=== PATIENT | female | born 1990 | race Caucasian/White ===

== ENCOUNTER → 2020-11-02 14:59 | Observation (INO) ==
[2020-11-02 14:24] LABS: Basophils % 0.2 %; Eosinophils % 0.4 %; Hematocrit 36.1 % (35.3-44.9); Immature Granulocytes % 0.6 % (0-4); Lymphocytes # 1.5 K/mcL (0.6-4.6); Mean Corpuscular HGB Conc 33.2 g/dL (31.6-35.5); Mean Corpuscular Hemoglobin 29.1 pg (28.0-33.3); Mean Corpuscular Volume 87.4 fL (83.0-100.0); Mean Platelet Volume 12.5 fL (9.4-12.4); Monocytes # 0.7 K/mcL (0.0-1.3); Monocytes % 7.7 %; Neutrophils # 6.8 K/mcL (1.6-8.9); Platelet Count 243 K/mcL (140-400); Red Blood Count 4.13 M/mcL (3.82-4.97); Red Cell Distribution Width 13.8 % (11.5-14.5); Segmented Neutrophils % 75.1 %; White Blood Count 9.1 K/mcL (4.3-11.1)
[2020-11-02 14:39] LABS: Protein/Creatinine Ratio,Urine 0.27 mg/mg (0.00-0.20)
[2020-11-02 14:40] LABS: Alanine Aminotransferase 12 Units/L (7-52); Aspartate Amino Transferase 17 Units/L (13-39); BUN/Creatinine Ratio 8 (6-26); Blood Urea Nitrogen 6 mg/dL (6-20); Lactate Dehydrogenase 149 Units/L (140-271); eGFR For African Americans > 60 (> 60); eGFR For Non-African Americans > 60 (> 60)
== END | disposition home or self-care (01) ==
LOC: 1NENULAB
PROVIDERS: ADMIT Advanced Practice Midwife; ATTEND Advanced Practice Midwife

== ENCOUNTER → 2020-11-16 17:50 | Observation (INO) ==
[2020-11-16 13:57] LABS: Protein/Creatinine Ratio,Urine 0.14 mg/mg (0.00-0.20)
[2020-11-16 14:06] LABS: Alanine Aminotransferase 10 Units/L (7-52); Aspartate Amino Transferase 17 Units/L (13-39); BUN/Creatinine Ratio 8 (6-26); Blood Urea Nitrogen 6 mg/dL (6-20); Lactate Dehydrogenase 141 Units/L (140-271); Uric Acid 4.8 mg/dL (2.3-7.6); eGFR For African Americans > 60 (> 60); eGFR For Non-African Americans > 60 (> 60)
[2020-11-16 15:15] LABS: Basophils % 0.2 %; Eosinophils % 0.1 %; Hematocrit 39.8 % (35.3-44.9); Immature Granulocytes % 0.4 % (0-4); Lymphocytes # 1.3 K/mcL (0.6-4.6); Lymphocytes % 14.5 %; Mean Corpuscular HGB Conc 32.7 g/dL (31.6-35.5); Mean Corpuscular Hemoglobin 28.1 pg (28.0-33.3); Mean Corpuscular Volume 86.1 fL (83.0-100.0); Monocytes # 0.8 K/mcL (0.0-1.3); Monocytes % 8.3 %; Neutrophils # 7.1 K/mcL (1.6-8.9); Platelet Count 214 K/mcL (140-400); Red Blood Count 4.62 M/mcL (3.82-4.97); Red Cell Distribution Width 13.9 % (11.5-14.5); Segmented Neutrophils % 76.5 %; White Blood Count 9.3 K/mcL (4.3-11.1)
[~2020-11-16 17:50] MED LIST: Acetaminophen 325 MG TABLET PO PRN
== END | disposition home health service (06) ==
LOC: 1NENULAB
PROVIDERS: ADMIT Registered Nurse; ATTEND Registered Nurse

== ENCOUNTER 2020-11-24 05:39 | Inpatient (IN) ==
[2020-11-24] MEDS ORDERED: Lidocaine 1% 20 ML MDV INFILT PRN (05:44)
[2020-11-24] MEDS ORDERED: Naloxone 0.4 MG/ML INJ IVP PRN (05:44)
[2020-11-24] MEDS ORDERED: Metoclopramide 10 MG/2 ML VIAL IVP PRN (05:44)
[2020-11-24] MEDS ORDERED: *HR* Nalbuphine 10 MG/ML AMPUL IV PRN (05:44)
[2020-11-24] MEDS ORDERED: Famotidine 20 MG/2 ML VIAL IVP PRN (05:44)
[2020-11-24] MEDS ORDERED: Ondansetron 4 MG/2 ML VIAL IVP PRN (05:44)
[2020-11-24 06:45] LABS: Basophils % 0.2 %; Eosinophils % 0.2 %; Hematocrit 37.7 % (35.3-44.9); Hemoglobin 12.4 g/dL (11.5-15.4); Immature Granulocytes % 0.4 % (0-4); Lymphocytes # 1.6 K/mcL (0.6-4.6); Lymphocytes % 17.5 %; Mean Corpuscular HGB Conc 32.9 g/dL (31.6-35.5); Mean Corpuscular Volume 85.1 fL (83.0-100.0); Monocytes # 0.7 K/mcL (0.0-1.3); Monocytes % 7.1 %; Neutrophils # 6.9 K/mcL (1.6-8.9); Platelet Count 217 K/mcL (140-400); Red Blood Count 4.43 M/mcL (3.82-4.97); Red Cell Distribution Width 13.9 % (11.5-14.5); Segmented Neutrophils % 74.6 %; White Blood Count 9.3 K/mcL (4.3-11.1)
[2020-11-24] MEDS ORDERED: EPHEDrine 50 MG/ML VIAL IVP PRN (06:54)
[2020-11-24 07:04] LABS: Alanine Aminotransferase 11 Units/L (7-52); Aspartate Amino Transferase 38 Units/L (13-39); BUN/Creatinine Ratio 7 (6-26); Blood Urea Nitrogen 5 mg/dL (6-20); Lactate Dehydrogenase 323 Units/L (140-271); Uric Acid 5.2 mg/dL (2.3-7.6); eGFR For African Americans > 60 (> 60); eGFR For Non-African Americans > 60 (> 60)
[2020-11-24 07:26] LABS: Protein/Creatinine Ratio,Urine 0.16 mg/mg (0.00-0.20)
[2020-11-24 10:54] LABS: Amphetamine Screen,Urine Negative ng/mL (Cutoff=1000); Barbiturate Screen,Urine Negative ng/mL (Cutoff=200); Benzodiazepines Screen,Urine Negative ng/mL (Cutoff=200); Cannabinoid Screen,Urine Negative ng/mL (Cutoff = 50); Cocaine Screen,Urine Negative ng/mL (Cutoff= 300); Opiate Screen,Urine Negative ng/mL (Cutoff=300); Phencyclidine Screen,Urine Negative ng/mL (Cutoff=25)
[2020-11-24] MEDS ORDERED: Oxytocin 20 units/ LR 1000 mL 20 UNIT/1,000 ML BAG IVC SCH (11:30)
[2020-11-24] MEDS: Ringers Solution, Lactated 1,000 ML IVC SCH ×2 (11:43→14:18)
[2020-11-24 13:47] LABS: Adenovirus Not Detected (Not Detect); Bordetella Pertussis Not Detected (Not Detect); Chlamydophila pneumoniae Not Detected (Not Detect); Coronavirus 229E Not Detected (Not Detect); Coronavirus HKU1 Not Detected (Not Detect); Coronavirus NL63 Not Detected (Not Detect); Coronavirus OC43 Not Detected (Not Detect); Human Metapneumovirus Not Detected (Not Detect); Human Rhinovirus/Enterovirus Not Detected (Not Detect); Influenza A Subtype 2009 H1 Not Detected (Not Detect); Influenza B Not Detected (Not Detect); Mycoplasma pneumoniae Not Detected (Not Detect); Parainfluenza Virus 1 Not Detected (Not Detect); Parainfluenza Virus 2 Not Detected (Not Detect); Parainfluenza Virus 3 Not Detected (Not Detect); Parainfluenza Virus 4 Not Detected (Not Detect); Respiratory Syncytial Virus Not Detected (Not Detect); SARS-CoV-2 Not Detected (Not Detect)
[2020-11-24] MEDS: Epidural Premix (fent/bupiv) 110 ML EP SCH (14:34)
[2020-11-24] MEDS ORDERED: Ropivacaine/PF 0.2% 20 ML VIAL ONE (16:04)
[2020-11-24] MEDS ORDERED: *HR* FentaNYL (PF) 100 MCG/2 ML VIAL ONE (21:47)
[2020-11-25] MEDS ORDERED: Ropivacaine/PF 0.2% 20 ML VIAL ONE (00:30)
[2020-11-25] MEDS ORDERED: *HR* FentaNYL (PF) 100 MCG/2 ML VIAL ONE (00:31)
[2020-11-25] MEDS: Epidural Premix (fent/bupiv) 110 ML EP SCH (02:22)
[2020-11-25] MEDS ORDERED: Lanolin 7 G OINT...G. TP PRN (05:25)
[2020-11-25] MEDS ORDERED: Acetaminophen 325 MG TABLET PO PRN (05:25)
[2020-11-25] MEDS ORDERED: Benzocaine/Menthol 56 GM AEROSOL SPRAY TP PRN (05:25)
[2020-11-25] MEDS ORDERED: Rho Immune Globulin 1,500 UNIT SYRINGE IM PRN (05:25)
[2020-11-25] MEDS ORDERED: Oxytocin 20 units/ LR 1000 mL 20 UNIT/1,000 ML BAG IVC SCH (05:25)
[2020-11-25] MEDS: Ibuprofen 600 MG TABLET PO PRN ×3 (05:34→20:57)
[2020-11-25] MEDS: Prenatal Vit/FA 1 EACH TABLET PO SCH (08:53)
[2020-11-26] MEDS: Prenatal Vit/FA 1 EACH TABLET PO SCH (07:30)
[2020-11-26] MEDS: Ibuprofen 600 MG TABLET PO PRN (07:30)
[2020-11-26 07:43] VITALS: BP 116/79
== END 2020-11-26 11:28 | disposition home or self-care (01) | DRG 807 ==
LOC: 1NENULAB 05:39 → 1NENUOBS 11-25 05:24
PROVIDERS: ADMIT Registered Nurse; ATTEND Registered Nurse